=== PATIENT | female | born 1965 | race Caucasian/White ===

== ENCOUNTER 2024-10-10 10:43 | Inpatient (IN) ==
--- NOTE | 2024-09-12 11:15 | PAT Medication Instructions ---
Medication Instructions Date of Service September 12, 2024 Home Medications atorvastatin 10 mg tablet 10 mg PO QAM cholecalciferol (vitamin D3) 125 mcg (5,000 unit) tablet (Vitamin D3) 125 mcg PO BID levothyroxine 175 mcg tablet 87.5 mcg PO 2XWK levothyroxine 175 mcg tablet 175 mcg PO 5XWK lisinopril 5 mg tablet 5 mg PO QAM omeprazole 40 mg capsule,delayed release 40 mg PO QAM sertraline 25 mg tablet 25 mg PO QAM tirzepatide 7.5 mg/0.5 mL subcutaneous pen injector (Mounjaro) 7.5 mg subcut WK triamterene 37.5 mg-hydrochlorothiazide 25 mg tablet 1 tab PO QAM Continue as directed levothyroxine 175 mcg tablet 87.5 mcg PO 2XWK levothyroxine 175 mcg tablet 175 mcg PO 5XWK STOP 7 days prior to surgery tirzepatide 7.5 mg/0.5 mL subcutaneous pen injector (Mounjaro) 7.5 mg subcut WK DO NOT take the morning of surgery cholecalciferol (vitamin D3) 125 mcg (5,000 unit) tablet (Vitamin D3) 125 mcg PO BID lisinopril 5 mg tablet 5 mg PO QAM triamterene 37.5 mg-hydrochlorothiazide 25 mg tablet 1 tab PO QAM Take morning of surgery With a small sip of water, OTHERWISE NOTHING TO EAT OR DRINK AFTER MIDNIGHT: atorvastatin 10 mg tablet 10 mg PO QAM omeprazole 40 mg capsule,delayed release 40 mg PO QAM sertraline 25 mg tablet 25 mg PO QAM Take evening before surgery cholecalciferol (vitamin D3) 125 mcg (5,000 unit) tablet (Vitamin D3) 125 mcg PO BID Other Notes If you have any questions please call us at [phone] or [phone] or [phone] or [phone]
--- NOTE | 2024-09-18 10:01 | Anesthesiology Consultation ---
Date of Service September 18, 2024 Assessment & Plan (1) Encounter for pre-operative examination: - awaiting surgeon ordered medical clearance 09/26/24, Dr. Merrick Cardona. - check BSG am DOS. - tirzepatide instructions: Patient informed at PAT visit to stop 7 days prior to surgery-voiced understanding. Patient advised to check with prescriber to see if alternative management changes recommended while holding tirzepatide- if so, patient to call back to [facility] to update chart and discuss if any further preop medication instructions needed. Chart Review Chart Review: Pending: Refer to Additional Notes / Consult section and Patient seen in Pre Admission Testing Teaching & Discussion Pre-Anesthesia Teaching/Discussion Notes: Instructed NPO after midnight before surgery, except medications with 15 cc of water. Medication instructions provided according to the [facility] guidelines. History Surgery Operation Date: 10/10/24 07:45 Proposed Procedures p L4-L5 Decompression and Fusion Spinal Cord Monitoring - German Jenkins, Height/Weight Height: 5 ft 2 in Weight: 109.6 kg Allergies Allergy/AdvReac Type Severity Reaction Status Date / Time metformin AdvReac Severe severe Verified 09/10/24 15:06 abdominal pain, cramping, diarrhea tramadol AdvReac Mild Dizziness Verified 09/10/24 15:05 Medications Home Medications Medication Instructions Recorded Confirmed Last Taken atorvastatin 10 mg tablet 10 mg PO QAM 09/10/24 09/10/24 Unknown cholecalciferol (vitamin D3) 125 125 mcg PO BID 09/10/24 09/10/24 Unknown mcg (5,000 unit) tablet (Vitamin D3) levothyroxine 175 mcg tablet 87.5 mcg PO 2XWK 09/10/24 09/10/24 Unknown levothyroxine 175 mcg tablet 175 mcg PO 5XWK 09/10/24 09/10/24 Unknown lisinopril 5 mg tablet 5 mg PO QAM 09/10/24 09/10/24 Unknown omeprazole 40 mg capsule,delayed 40 mg PO QAM 09/10/24 09/10/24 Unknown release sertraline 25 mg tablet 25 mg PO QAM 09/10/24 09/10/24 Unknown tirzepatide 7.5 mg/0.5 mL 7.5 mg subcut WK 09/10/24 09/10/24 09/04/24 subcutaneous pen injector (Rita) triamterene 37.5 1 tab PO QAM 09/10/24 09/10/24 Unknown mg-hydrochlorothiazide 25 mg tablet Past Medical History Medical History (Updated 09/18/24 @ 10:22 by Viv Real PA-C) Anxiety Chronic back pain Degenerative disc disease GERD (gastroesophageal reflux disease) controlled, stable per pt Hyperlipidemia Hypertension controlled, stable per pt Hypothyroidism Osteoarthritis Pre-diabetes Sleep apnea bipap at night Spinal stenosis Patient denies h/o stroke, seizures, heart attack, heart failure, blood clots/DVTs or blood transfusions. Exercise / Class Metabolic Activity II 4-5 Yardwork/Stairs/Walk up hill (denies chest discomfort or shortness of breath with one flight of stairs) Past Family History Family History Other No family history of adverse response to anesthesia Past Surgical History Surgical History H/O thumb surgery right thumb ligament repair H/O total thyroidectomy d/t nodules H/O umbilical hernia repair History of section History of cholecystectomy History of colonoscopy History of esophagogastroduodenoscopy (EGD) History of mandibular surgery repair of TMJ on left S/P epidural steroid injection S/P foot surgery, left repair of a tendon S/P nasal septoplasty S/P panniculectomy S/P T&A (status post tonsillectomy and adenoidectomy) Past Anesthesia History No Hx of Anesthesia Complications and No Family Hx of Anesthesia Complications History of PONV No Hx of PONV and No Hx of Motion Sickness Social History Smoking Status: Never smoker Do You Dip or Chew Tobacco: No Hx Alcohol Use: Yes alcohol intake frequency: a few times a month Hx Substance Use: No substance use type: does not use Review of Systems Patient denies chest pain, shortness of breath, dyspnea on exertion, fever, chills, cough, wheezing, or palpitations. Physical Exam Vital Signs Vitals BP 121/75 P 85 TEMP 98.7 SP02 95% on RA RESP 18 Physical Patient resting comfortably in chair in no acute distress, alert and oriented, responding appropriately throughout visit Full cervical extension range of motion without pain TMD 3.5 finger breadths Mallampati Score 2 Dentition: implant right lower side and front upper bridge, denies chipped or loose teeth, caps/crowns Lungs: normal respiratory effort. Good air movement, clear throughout to auscultation, no adventitious breath sounds Cardiac: regular rate and rhythm, no murmurs noted Carotid arteries: negative bruit bilat Lab Results Anesthesia Preop Results Results Anesthesia Widget: WBC 6.87 K/ul (4.8-10.8) 09/18/24 Hgb 13.3 g/dl (12.0-16.0) 09/18/24 Hct 39.0 % (37.0-47.0) 09/18/24 Plt 248 K/uL (130-400) 09/18/24 Na 140 mmol/L (136-145) 09/18/24 K 3.6 mmol/L (3.5-5.1) 09/18/24 Cl 104 mmol/L (98-107) 09/18/24 CO2 31 mmol/L (21-32) 09/18/24 BUN 16 mg/dl (6-23) 09/18/24 Creat 0.60 mg/dl (0.6-1.2) 09/18/24 Glucose Level 117 mg/dl (70-99(Fasting)) H 09/18/24 PT 10.0 Seconds (9.0-12.0) 09/18/24 PTT 26 Seconds (21-31) 09/18/24 INR 0.9 (0.9-1.1) 09/18/24 HA1c 6.1 % (4.5-5.6) H 09/18/24 Urine Color Yellow 09/18/24 Urine Appearance Cloudy (Clear) A 09/18/24 Urine pH 5.5 (4.5-7.5) 09/18/24 Urine Specific [place] 1.020 (1.000-1.030) 09/18/24 Urine Protein Negative (Negative) 09/18/24 Urine Glucose (UA) Negative (Negative) 09/18/24 Urine Ketones Negative (Negative) 09/18/24 Urine Blood Negative (Negative) 09/18/24 Urine Nitrite Negative (Negative) 09/18/24 Urine Bilirubin Negative (Negative) 09/18/24 Urine Urobilinogen Negative (Negative) 09/18/24 Urine Leukocyte Esterase Trace (Negative) H 09/18/24 Urine WBC (Auto) 0-5 /hpf (0-5) 09/18/24 Urine RBC (Auto) 0-2 /hpf (0-2) 09/18/24 Urine Hyaline Casts (Auto) 0-2 /lpf (0-2) 09/18/24 Urine Epithelial Cells (Auto) >20 /hpf (0-2) H 09/18/24 Urine Bacteria (Auto) 1+ (None Seen) H 09/18/24 Blood Type A Positive 09/18/24 Antibody Screen NEGATIVE 09/18/24 Testing Laboratory Results Surgeon's office made aware of abnormal UA. Electrocardiogram Date: 09/18/24 NSR, rate 74 bpm Chest X-Ray Date: 09/18/24 No focal consolidation, infiltrates, or granuloma noted.
[~2024-10-10 10:43] MED LIST: DEXAMETHASONE SOD INJ 4 MG/ML VIAL ONE; KETAMINE HCL 10MG/ML SYR ONE; LIDOCAINE 2% 2 ML VIAL/AMP(20MG/ML) INFIL ONE; MIDAZOLAM HCL 1 MG/ML 2ML VIAL ONE; ONDANSETRON INJ 2 MG/ML 2 ML VIAL ONE; PROPOFOL IV EMULSION 10 MG/ML 20 ML VIAL IV ONE; ROCURONIUM BROMIDE 10 MG/ML 5 ML VIAL IV ONE; fentaNYL citrate PF 100 MCG/2 ML VIAL ONE
[2024-10-10] MEDS: LR 60ML/HR IV SCH (11:02)
[2024-10-10] MEDS: LR 15ML/HR IV SCH (11:02)
[2024-10-10] MEDS: ACETAMINOPHEN 500 MG TAB PO SCH (11:03)
[2024-10-10] MEDS: CeleBREX 200 MG CAP PO SCH (11:03)
[2024-10-10] MEDS: GABAPENTIN 600 MG DOSE PO SCH (11:03)
--- NOTE | 2024-10-10 12:18 | History & Physical Bridge Note ---
Date of Service October 10, 2024 History & Physical Bridge Note I have examined the patient, reviewed the History & Physical and in the interval since the performance of the History & Physical I have noted the following changes of clinical significance: no changes noted
--- NOTE | 2024-10-10 12:19 | History & Physical Report ---
Date of Service October 10, 2024 Assessment & Plan (1) Spondylolisthesis, lumbar region: Plan: L4-L5 decompression and fusion History of Present Illness Chief Complaint: Back and leg pain Primary Care Provider: Merrick Cardona MD This is a 59-year-old female who presents for chronic persistent back and leg pain after failing course of nonoperative care she is here for surgical invention. Allergies Allergy/AdvReac Type Severity Reaction Status Date / Time metformin AdvReac Severe severe Verified 10/10/24 10:35 abdominal pain, cramping, diarrhea tramadol AdvReac Mild Dizziness Verified 10/10/24 10:35 Home Medications Medication Instructions Recorded Confirmed Type atorvastatin 10 mg tablet 10 mg PO QAM 09/10/24 10/10/24 History cholecalciferol (vitamin D3) 125 125 mcg PO BID 09/10/24 10/10/24 History mcg (5,000 unit) tablet (Vitamin D3) levothyroxine 175 mcg tablet 87.5 mcg PO 2XWK 09/10/24 10/10/24 History levothyroxine 175 mcg tablet 175 mcg PO 5XWK 09/10/24 10/10/24 History lisinopril 5 mg tablet 5 mg PO QAM 09/10/24 10/10/24 History omeprazole 40 mg capsule,delayed 40 mg PO QAM 09/10/24 10/10/24 History release sertraline 25 mg tablet 25 mg PO QAM 09/10/24 10/10/24 History tirzepatide 7.5 mg/0.5 mL 7.5 mg subcut WK 09/10/24 10/10/24 History subcutaneous pen injector (Mounjaro) triamterene 37.5 1 tab PO QAM 09/10/24 10/10/24 History mg-hydrochlorothiazide 25 mg tablet empagliflozin 10 mg tablet 10 mg PO DAILY 09/26/24 10/10/24 History (Jardiance) Past Med/Surg History Problem List (Updated 10/10/24 @ 12:19 by German Jenkins DO) Spondylolisthesis, lumbar region Encounter for pre-operative examination Medical History (Updated 10/10/24 @ 12:19 by German Jenkins DO) Sleep apnea bipap at night Osteoarthritis Degenerative disc disease Spinal stenosis Chronic back pain Anxiety GERD (gastroesophageal reflux disease) controlled, stable per pt Hypothyroidism Hypertension controlled, stable per pt Hyperlipidemia Pre-diabetes Surgical History History of colonoscopy History of esophagogastroduodenoscopy (EGD) H/O thumb surgery right thumb ligament repair S/P foot surgery, left repair of a tendon S/P panniculectomy H/O umbilical hernia repair History of mandibular surgery repair of TMJ on left History of cholecystectomy H/O total thyroidectomy d/t nodules History of section S/P nasal septoplasty S/P T&A (status post tonsillectomy and adenoidectomy) S/P epidural steroid injection Family History Other No family history of adverse response to anesthesia Social History Smoking Status: Never smoker Second Hand Exposure: No; Do You Dip or Chew Tobacco: No; Tobacco Cessation Education Requested by Patient: No Hx Alcohol Use: Yes Hx Substance Use: No Preferred Language: Latvian Communication Ability: Effective Hardboard Grinder Required: No Beliefs That Will Affect Care: None Current Living Situation: Spouse Other Information That Helps Us Care for You: No Feels Safe at Home: Yes Safety Concerns: Feels Safe At This Time Assistive Devices: BiPap and Glasses Physical Exam Physical Exam: Patient is alert and oriented heart regular rhythm Lungs clear Results & Data Results & Data Vital Signs (Past 12 Hours) Vital Signs Temp Pulse Resp BP Pulse Ox O2 Del Method 10/10/24 10:53 Room Air, BiPAP 10/10/24 10:50 36.7 C 82 18 165/87 H 96 Room Air
[2024-10-10] MEDS: ceFAZolin 2000MG 2,000 MG/15 ML SYR IV SCH ×2 (12:49→20:27)
[2024-10-10] MEDS ORDERED: LARYING-O-JET KIT (LTA) ONE (13:07)
[2024-10-10] MEDS ORDERED: GLYCOPYRROLATE 0.2 MG/ML VIAL ONE (13:07)
[2024-10-10] MEDS ORDERED: fentaNYL citrate PF 100 MCG/2 ML VIAL ONE (13:11)
[2024-10-10] MEDS: BUPIVACAINE/EPINEPHRINE 0.25% 1:200,000 30 ML VIAL ONE (13:26)
[2024-10-10] MEDS ORDERED: SUGAMMADEX SODIUM 200 MG/2 ML VIAL IV ONE (13:31)
[2024-10-10] MEDS ORDERED: ePHEDrine sulfate 50 MG/ML AMP IV PRN (14:24)
[2024-10-10] MEDS: ceFAZolin 330 MG/ML 1 GM VIAL ONE (14:24)
[2024-10-10] MEDS ORDERED: MEPERIDINE HCL 25 MG/ML CARP/VIAL IV PRN (14:24)
[2024-10-10] MEDS ORDERED: ATROPINE SULFATE 0.1 MG/ML 10ML SYR IV PRN (14:24)
[2024-10-10] MEDS: FLOSEAL HEMOSTATIC MATRIX 10ML TOP ONE (14:24)
[2024-10-10] MEDS ORDERED: fentaNYL citrate PF 100 MCG/2 ML VIAL IV PRN (14:24)
[2024-10-10] MEDS ORDERED: DEXAMETHASONE SOD INJ 4 MG/ML VIAL IV PRN (14:24)
[2024-10-10] MEDS ORDERED: ONDANSETRON INJ 2 MG/ML 2 ML VIAL IV PRN ×2 (14:24→16:41)
[2024-10-10] MEDS ORDERED: HYDROmorphone INJ 2 MG/ML SYR/VIAL IV PRN (14:24)
--- NOTE | 2024-10-10 14:37 | Operative Report ---
Post Operative Report Pre & Post Diagnosis Operation Date: 10/10/24 12:05 Pre-Op Diagnosis: #1 lumbar spondylolisthesis with radiculopathy #2 lumbar spondylosis with radiculopathy #3 lumbar spinal stenosis #4 morbid obesity Post-Op Diagnosis: Same I identified the patient and participated in the time-out.: Yes Procedure Operation Date: 10/10/24 12:05 Actual Procedures #1 lumbar decompression with bilateral medial facetectomies and foraminotomies L3-L4 L4-L5. #2 posterior spinal fusion L4-5. #3 placement posterior instrumentation L4-5 using camber. #4 interbody fusion L4-L5. #5 this was Spira 13 x 26 mm x 2 at L4-5 #6 placement locally harvested morselized autograft in the posterior gutters. #7 placement infuse collagen sponge combined with Koros in the posterior lateral gutters and os design and interbody space. #8 application of versa wrap over the exposed dura. Surgeon German Jenkins, DO Er Physician Yuval Owens Estimated Blood Loss 400 Findings See Below The patient is 5 foot 2 weighing over 110 kg with a BMI in excess of 44. The patient's body habitus did contribute to significant technical difficulty with positioning exposure and the procedure itself. This had at least 50% increased operative time. I am recommending a modifier 22. Specimens None Indications This is a 59-year-old female who presents publish diagnosis with failing course of nonoperative care is here for surgical invention. Description of Procedure Patient was met with identified informed consent obtained. Patient was then taken to the operative suite underwent intubation placed in a prone position on the Noe table atop the [place] frame. All bony prominences well-padded eyes inspected to ensure no external pressure placed upon them. This point the lumbar spine was prepped and draped in normal sterile fashion. Sharp dissection with the assistance of Bovie cautery performed down to and exposing the lamina and transverse processes of L4-L5. From a caudal cephalad fashion complete laminectomy of L4 was performed including bilateral medial facetectomies and foraminotomies addressing severe neural compression. This is followed by partial laminectomy of L3 with bilateral medial facetectomies to address all subarticular stenosis. Pedicle screws were then placed in L4-L5 bilaterally with assistance of fluoroscopy and appropriate sized lolly placed. By way of transforaminal approach on the right a discectomy of L4-L5 was performed e ndplates corrected to subcortical edema bone and a 13 x 26 mm spiral cage filled with os design bone graft tapped in position. Then proceeded to the left transforaminal region at L4-5. Again discectomy performed. Endplates guided to subcortical main bone and a second 13 x 26 mm spiral cage filled with os design bone graft tapped in position. The rods then compressed locked in final position bilaterally. The transverse processes of L4-L5 burred to subcortical bleeding bone. Infuse collagen sponge, with Koros and local autograft placed in the posterior lateral gutters. 15 round ISMA drain inserted. Versa wrap placed over the exposed dura. The incision was then closed with 1 Vicryl and fascia 2- 0 Vicryl subcutaneously and 4 Monocryl for final skin closure. Steri-Strips sterile dressing placed. Patient awakened and taken to PACU in stable condition. Please note Yuval record was present at the entire procedure for the patient positioning complex portion of the surgery and final skin closure. I attest to the content of the Intraoperative Record and any orders documented therein. Any exceptions are noted below.
--- NOTE | 2024-10-10 14:46 | Fluoroscopy Report ---
FL lumbar spine 2-3V CLINICAL HISTORY: L4-L5 DECOMP/FUSION COMPARISON STUDY: None FLUOROSCOPY TIME: 12 seconds FLUOROSCOPY IMAGES: 3 EXPOSURE DOSE: 12 mGy FINDINGS: Fluoroscopy was provided for L4-5 metallic fusion. IMPRESSION: Intraoperative fluoroscopy. ACT 112: Negative or not required by law. Electronically signed by: Steve Lainez M.D. 10/10/2024 2:44 PM
--- NOTE | 2024-10-10 15:05 | Anesthesiology Progress Note ---
Date of Service October 10, 2024 Anesthesia Post Procedure Vital Signs Vital Signs: Temp Pulse Resp BP Pulse Ox O2 Del Method 10/10/24 10:53 Room Air, BiPAP 10/10/24 10:50 36.7 C 82 18 165/87 H 96 Room Air Pain Intensity Bilateral Leg: Pain Intensity: 8 Transfer of Care Handoff Completed per policy Notes Mental Status: alert / awake / arousable and participated in evaluation Patient Amnestic to Procedure: Yes Nausea / Vomiting: adequately controlled Pain: adequately controlled Airway Patency, RR, SpO2: stable & adequate BP & HR: stable & adequate Hydration State: stable & adequate Anesthetic Complications: no major complications apparent and Pt Satisfied with anesthetic care
[2024-10-10] MEDS ORDERED: LABETALOL HCL IV 5 MG/ML 20ML IV ONE (15:09)
[2024-10-10] MEDS ORDERED: HYDROmorphone INJ 1 MG/ML SYRINGE IV PRN (16:41)
[2024-10-10] MEDS ORDERED: LORazepam 0.5 MG TAB PO PRN (16:41)
[2024-10-10] MEDS ORDERED: SOD PHOSPHATE/SOD BIPHOSPHATE ENEMA 132 ML BTL PR PRN (16:41)
[2024-10-10] MEDS ORDERED: NALOXONE HCL 0.4 MG/1 ML VIAL/CARP IV PRN (16:41)
[2024-10-10] MEDS ORDERED: MAGNESIUM HYDROXIDE SUSP 30 ML UDC PO PRN (16:41)
[2024-10-10] MEDS ORDERED: DO NOT ADMINISTER FLU VACCINE PRN (16:41)
[2024-10-10] MEDS ORDERED: ONDANSETRON 4 MG OD TAB PO PRN (16:41)
[2024-10-10] MEDS ORDERED: hydrOXYzine HCl 25 MG TAB PO PRN (16:41)
[2024-10-10] MEDS ORDERED: DO NOT ADMINISTER PNEUMOCOCCAL VACCINE PRN (16:41)
[2024-10-10] MEDS ORDERED: LORazepam 2 MG/1 ML VIAL IV PRN (16:41)
[2024-10-10] MEDS ORDERED: oxyCODONE HCL IR 5 MG TAB (IMMEDIATE RELEASE) PO PRN (16:41)
[2024-10-10] MEDS ORDERED: diphenhydrAMINE Capsule 25 MG CAP PO PRN (16:41)
[2024-10-10] MEDS ORDERED: PROMETHAZINE 12.5 MG/50.5 ML BAG IV PRN (16:41)
[2024-10-10] MEDS ORDERED: NON-FORMULARY MEDICATION (Tirzepatide [Mounjaro] 7.5 mg/0.5 mL Pen Injector) SQ SCH (16:41)
[2024-10-10] MEDS ORDERED: HYDROmorphone INJ 0.5 MG/0.5 ML SYR IV PRN (16:41)
[2024-10-10] MEDS ORDERED: ALUMINUM/MAGNESIUM SUSP 30 ML UDC PO PRN (16:41)
[2024-10-10] MEDS ORDERED: PHARMACY GLYCEMIC MGMT CONSULT PRN (16:41)
[2024-10-10] MEDS ORDERED: bisacodyL 10 MG SUPP PR PRN (16:41)
[2024-10-10] MEDS ORDERED: ACETAMINOPHEN 1,000 MG/100 ML VIAL IV PRN (16:41)
[2024-10-10] MEDS ORDERED: GLUCOSE 40% GEL 15 GM TUBE PO PRN (17:15)
[2024-10-10] MEDS ORDERED: CARBOHYDRATES FOR HYPOGLYCEMIA PO PRN (17:15)
[2024-10-10] MEDS ORDERED: GLUCAGON FOR INJ 1 MG VIAL SQ PRN (17:15)
[2024-10-10] MEDS ORDERED: DEXTROSE 50% 50 ML SYRINGE IV PRN (17:15)
[2024-10-10] MEDS ORDERED: GLUCOSE 10 TAB/TUBE PO PRN (17:15)
--- NOTE | 2024-10-10 18:17 | Hospitalist Consultation ---
Date of Consultation October 10, 2024 Assessment & Plan (1) Spondylolisthesis, lumbar region: Status post L4-L5 decompression and fusion (2) Spinal stenosis: (3) Chronic back pain: (4) Anxiety: (5) GERD (gastroesophageal reflux disease): (6) Hypothyroidism: (7) Hypertension: (8) Hyperlipidemia: (9) Sleep apnea: Plan L4-L5 decompression and fusion on 10/10/2024 Management will be as per spine surgery Minimal pain following surgery without any radiation and her numbness has been improving DVT prophylaxis as per surgeon Remains medically stable and will check blood counts to see the stability Her other significant medical conditions as mentioned above remained stable Her chronic medications will be continued and She will have BiPAP for sleep apnea as usual Her CBC and PRP will be checked tomorrow DVT prophylaxis As per spine surgery, SCDs for now CODE STATUS Full History of Present Illness Reason for Consultation: Medical management following L4-L5 decompression and fusion Attending Physician: German Jenkins, DO History of Present Illness She is a 59-year-old female with significant past medical history of sleep apnea on BiPAP at night spinal stenosis, Anxiety/depression, GERD, hypothyroidism, hypertension, hyperlipidemia and prediabetes apparently underwent L4-L5 decompression and fusion for ongoing chronic back pain with radiculopathy. She has been feeling much better with minimal pain in the lower back and does not have any numbness or tingling involving the extremities. She denies any chest pain, shortness of breath or palpitation. Does not have any abdominal pain nausea or vomiting. Allergies Allergy/AdvReac Type Severity Reaction Status Date / Time metformin AdvReac Severe severe Verified 10/10/24 10:35 abdominal pain, cramping, diarrhea tramadol AdvReac Mild Dizziness Verified 10/10/24 10:35 Home Medications Medication Instructions Recorded Confirmed Type atorvastatin 10 mg tablet 10 mg PO QAM 09/10/24 10/10/24 History cholecalciferol (vitamin D3) 125 125 mcg PO BID 09/10/24 10/10/24 History mcg (5,000 unit) tablet (Vitamin D3) levothyroxine 175 mcg tablet 87.5 mcg PO 2XWK 09/10/24 10/10/24 History levothyroxine 175 mcg tablet 175 mcg PO [id number] 09/10/24 10/10/24 History lisinopril 5 mg tablet 5 mg PO QAM 09/10/24 10/10/24 History omeprazole 40 mg capsule,delayed 40 mg PO QAM 09/10/24 10/10/24 History release sertraline 25 mg tablet 25 mg PO QAM 09/10/24 10/10/24 History tirzepatide 7.5 mg/0.5 mL 7.5 mg subcut WK 09/10/24 10/10/24 History subcutaneous pen injector (Mounjaro) triamterene 37.5 1 tab PO QAM 09/10/24 10/10/24 History mg-hydrochlorothiazide 25 mg tablet empagliflozin 10 mg tablet 10 mg PO DAILY 09/26/24 10/10/24 History (Jardiance) Patient History Medical History (Updated 10/10/24 @ 12:19 by German Jenkins DO) Sleep apnea bipap at night Osteoarthritis Degenerative disc disease Spinal stenosis Chronic back pain Anxiety GERD (gastroesophageal reflux disease) controlled, stable per pt Hypothyroidism Hypertension controlled, stable per pt Hyperlipidemia Pre-diabetes Surgical History History of colonoscopy History of esophagogastroduodenoscopy (EGD) H/O thumb surgery right thumb ligament repair S/P foot surgery, left repair of a tendon S/P panniculectomy H/O umbilical hernia repair History of mandibular surgery repair of TMJ on left History of cholecystectomy H/O total thyroidectomy d/t nodules History of section S/P nasal septoplasty S/P T&A (status post tonsillectomy and adenoidectomy) S/P epidural steroid injection Family History Other No family history of adverse response to anesthesia Social History Smoking Status: Never smoker Second Hand Exposure: No; Do You Dip or Chew Tobacco: No; Tobacco Cessation Education Requested by Patient: No Hx Alcohol Use: Yes Hx Substance Use: No Preferred Language: Italian Communication Ability: Effective Homeopathic Doctor Required: No Beliefs That Will Affect Care: None Current Living Situation: Spouse Other Information That Helps Us Care for You: No Feels Safe at Home: Yes Safety Concerns: Feels Safe At This Time Assistive Devices: BiPap and Glasses Review of Systems Review of Systems: All systems reviewed and are unremarkable except as noted below Physical Exam Physical Exam: Lying in bed without any apparent distress Constitutional: well developed, well nourished, + ill appearing and + obese Eyes: PERRL, conjunctivae normal, anicteric sclerae ENMT: external ear and nose normal, oropharynx normal Neck: trachea midline, no thyromegaly Respiratory: no respiratory distress Auscultation: lungs clear to auscultation bilaterally Cardiovascular: Rate/Rhythm: regular rate and regular rhythm; not tachycardic Heart Sounds: normal S1 and normal S2; no murmur Extremities: + edema ( trace edema bilaterally) Gastrointestinal (Abdomen): Inspection/Auscultation: + abdomen distended and normal bowel sounds Percussion/Palpation: abdomen soft; abdomen nontender Musculoskeletal: No acute arthritis involving any of the joint Neurologic: Alert, awake and oriented x 3. No focal sensory no motor deficit appreciated Lymphatic: no cervical or axillary lymphadenopathy Results & Data Results & Data Vital Signs (Past 12 Hours) Vital Signs Temp Pulse Pulse Resp BP BP Pulse Ox 10/10/24 17:30 77 16 138/80 96 10/10/24 16:15 74 12 132/70 95 10/10/24 16:00 63 14 122/76 95 10/10/24 15:50 65 18 153/96 H 96 10/10/24 15:45 63 14 141/81 H 96 10/10/24 15:30 36.4 C L 76 14 131/84 96 10/10/24 15:20 77 12 145/84 H 99 10/10/24 15:10 83 14 144/94 H 100 10/10/24 15:04 36 C L 86 14 168/89 H 99 10/10/24 10:53 10/10/24 10:50 36.7 C 82 18 165/87 H 96 O2 Del Method O2 Flow Rate 10/10/24 17:30 Room Air 10/10/24 16:15 Nasal Cannula 2 10/10/24 16:00 Nasal Cannula 2 10/10/24 15:50 Nasal Cannula 2 10/10/24 15:45 Nasal Cannula 2 10/10/24 15:30 Nasal Cannula 2 10/10/24 15:20 Oxymask 4 10/10/24 15:10 Oxymask 8 10/10/24 15:04 Oxymask 8 10/10/24 10:53 Room Air, BiPAP 10/10/24 10:50 Room Air Medications Administered Current Inpatient Medications Acetaminophen (Acetaminophen 500 Mg Tab) 1,000 mg PO Q8H PRN PRN Reason: MILD Pain Scale 1,2,3 & Pre PT Stop: 11/09/24 16:40 Al Hydrox/Mg Hydrox/Simethicone (Aluminum/Magnesium Susp 30 Ml Udc) 30 ml PO Q6H PRN PRN Reason: Dyspepsia Stop: 11/09/24 16:40 Atorvastatin Calcium (Atorvastatin 10 Mg Tab) 10 mg PO QAM ISMEAL Stop: 11/10/24 08:59 Atropine Sulfate (Atropine Sulfate 0.1 Mg/Ml 10ml Syr) 0.5 mg IV Q1M PRN PRN Reason: PACU Use-HR<40 &/or Bradycardi Stop: 10/10/24 22:24 Bisacodyl (Bisacodyl 10 Mg Supp) 10 mg AR DAILY PRN PRN Reason: Constipation Stop: 11/09/24 16:40 Dexamethasone (Dexamethasone Sod Inj 4 Mg/Ml Vial) 4 mg IV ONCE PRN PRN Reason: PACU Use Only-Nausea/Vomiting Stop: 10/10/24 22:25 Dextrose (Dextrose 50% 50 Ml Syringe) 25 - 50 ml IV UD PRN; Protocol PRN Reason: Hypoglycemia Protocol Stop: 11/09/24 17:14 Diphenhydramine HCl (Diphenhydramine Capsule 25 Mg Cap) 25 mg PO Q6H PRN PRN Reason: Allergic Rhinitis/Insomnia Stop: 11/09/24 16:40 Ephedrine Sulfate (Ephedrine Sulfate 50 Mg/Ml Amp) 5 mg IV Q5M PRN PRN Reason: PACU Use Only-SBP<90 mmHg Stop: 10/10/24 22:24 Famotidine (Famotidine 20 Mg Tab) 20 mg PO Q12H PRN PRN Reason: Dyspepsia Stop: 11/09/24 16:40 Fentanyl Citrate (Fentanyl Citrate Pf 100 Mcg/2 Ml Vial) 50 mcg IV Q5M PRN PRN Reason: PACU Use Only-Pain Stop: 10/10/24 22:24 Glucagon (Glucagon For Inj 1 Mg Vial) 1 mg SQ UD PRN; Protocol PRN Reason: Hypoglycemia Protocol Stop: 11/09/24 17:14 Glucose (Glucose 40% Gel 15 Gm Tube) 15 - 30 gm PO UD PRN; Protocol PRN Reason: Hypoglycemia Protocol Stop: 11/09/24 17:14 Glucose (Glucose 10 Tab/Tube) 4 - 8 tab PO UD PRN; Protocol PRN Reason: Hypoglycemia Protocol Stop: 11/09/24 17:14 Hydromorphone HCl (Hydromorphone Inj 2 Mg/Ml Syr/Vial) 1 mg IV Q5M PRN PRN Reason: PACU Use Only-Pain Stop: 10/10/24 22:24 Hydromorphone HCl (Hydromorphone Inj 0.5 Mg/0.5 Ml Syr) 0.5 mg IV Q3H PRN PRN Reason: MODERATE Pain (Scale 4,5,6) & Pre PT Stop: 10/24/24 16:40 Hydromorphone HCl (Hydromorphone Inj 1 Mg/Ml Syringe) 1 mg IV Q3H PRN PRN Reason: SEVERE Pain (Scale 7,8,9,10) Stop: 10/24/24 16:40 Hydroxyzine HCl (Hydroxyzine Hcl 25 Mg Tab) 25 mg PO Q8H PRN PRN Reason: Anxiety Stop: 11/09/24 16:40 Lactated Ringer's (Lr) 1,000 mls @ 15 mls/hr IV .Q24H ISMAEL Stop: 10/11/24 05:59 Last Infusion: 10/10/24 12:47 Dose: Infused Lactated Ringer's (Lr) 1,000 mls @ 60 mls/hr IV .[id number] ISMAEL Stop: 10/10/24 22:39 Last Admin: 10/10/24 11:02 Dose: Not Given Acetaminophen (Ofirmev) 1,000 mg in 100 mls @ 400 mls/hr IV Q8H PRN PRN Reason: Pain Rating 1-3 & Pre PT Stop: 10/11/24 16:42 Cefazolin Sodium (Ancef 2000mg) 2,000 mg in 15 mls @ 3.75 mls/min IV Q8H ISMAEL; Protocol Stop: 10/11/24 05:03 Promethazine HCl (Phenergan) 12.5 mg in 50.5 mls @ 202 mls/hr IV Q6H PRN PRN Reason: Nausea And Vomiting Stop: 11/09/24 16:40 Dexamethasone 6 mg/ Syringe 1.5 mls @ 1 mls/min IV DAILY ISMAEL Stop: 10/13/24 09:02 Influenza Virus Vaccine Quadrival (Do Not Administer Flu Vaccine) 1 each N/A PRN PRN PRN Reason: Notification Stop: 11/09/24 16:40 Insulin Aspart (Insulin Aspart Per Unit Charge) 0 units SC ACHS COUNTS INCLUDE 234 BEDS AT THE [facility] Stop: 11/09/24 20:59 Levothyroxine Sodium (Levothyroxine Sodium 175 Mcg Tablet) 87.5 mcg PO SuSa@0630 COUNTS INCLUDE 234 BEDS AT THE [facility] Stop: 11/10/24 06:29 Levothyroxine Sodium (Levothyroxine Sodium 175 Mcg Tablet) 175 mcg PO MoTuWeThFr@0630 COUNTS INCLUDE 234 BEDS AT THE [facility] Stop: 11/12/24 06:29 Lisinopril (Lisinopril 5 Mg Tab) 5 mg PO QAM COUNTS INCLUDE 234 BEDS AT THE [facility] Stop: 11/10/24 08:59 Lorazepam (Lorazepam 0.5 Mg Tab) 0.5 mg PO Q8H PRN PRN Reason: Sedation/Anxiety Stop: 11/09/24 16:40 Lorazepam (Lorazepam 2 Mg/1 Ml Vial) 0.5 mg IV Q8H PRN PRN Reason: Sedation/Anxiety Stop: 11/09/24 16:40 Magnesium Hydroxide (Magnesium Hydroxide Susp 30 Ml Udc) 30 ml PO Q24H PRN PRN Reason: Constipation Stop: 11/09/24 16:40 Meperidine HCl (Meperidine Hcl 25 Mg/Ml Carp/Vial) 12.5 mg IV Q5M PRN PRN Reason: Surgi Pain/Chills/Rigors Stop: 10/10/24 22:25 Metoclopramide HCl (Metoclopramide Hcl Inj 5 Mg/Ml 2 Ml Vial) 10 mg IV Q6H PRN PRN Reason: Nausea &/or Vomiting Stop: 11/09/24 16:40 Miscellaneous (Carbohydrates For Hypoglycemia ) 15 - 30 gm PO UD PRN PRN Reason: Hypoglycemia Treatment Stop: 11/09/24 17:14 Miscellaneous Information (Pharmacy Glycemic Mgmt Consult) 1 each N/A UD PRN PRN Reason: Consult Stop: 11/09/24 16:40 Naloxone HCl (Naloxone Hcl 0.4 Mg/1 Ml Vial/Carp) 0.1 mg IV Q5M PRN PRN Reason: Oversedation/Resp depression Stop: 11/09/24 16:40 Ondansetron HCl (Ondansetron Inj 2 Mg/Ml 2 Ml Vial) 4 mg IV ONCE PRN PRN Reason: PACU Use Only-Nausea/Vomiting Stop: 10/10/24 22:25 Ondansetron HCl (Ondansetron Inj 2 Mg/Ml 2 Ml Vial) 4 mg IV Q6H PRN PRN Reason: Nausea &/or Vomiting Stop: 11/09/24 16:40 Ondansetron HCl (Ondansetron 4 Mg Od Tab) 4 mg PO Q6H PRN PRN Reason: Nausea Stop: 11/09/24 16:40 Oxycodone HCl (Oxycodone Hcl Ir 5 Mg Tab (Immediate Release)) 5 - 10 mg PO Q4H PRN PRN Reason: Pain & Pre PT Stop: 10/24/24 16:40 Pantoprazole Sodium (Pantoprazole 40 Mg Tab) 40 mg PO QAM COUNTS INCLUDE 234 BEDS AT THE [facility] Stop: 11/10/24 08:59 Pneumococcal Polyvalent Vaccine (Do Not Administer Pneumococcal Vaccine) 1 each N/A PRN PRN PRN Reason: Notification Stop: 11/09/24 16:40 Polyethylene Glycol (Polyethylene (Miralax) 17 Gm Pack) 17 gm PO Q6 ISMAEL Stop: 11/10/24 05:59 Senna/Docusate Sodium (Docusate Sodium/Senna 50/8.6mg Tab) 2 tab PO HS COUNTS INCLUDE 234 BEDS AT THE [facility] Stop: 11/09/24 20:59 Sertraline HCl (Sertraline Hcl 50 Mg Tablet) 25 mg PO QAM COUNTS INCLUDE 234 BEDS AT THE [facility] Stop: 11/10/24 08:59 Sodium Biphosphate/Sodium Phosphate (Sod Phosphate/Sod Biphosphate Enema 132 Ml Btl) 132 ml AR ONE PRN PRN Reason: Constipation Stop: 11/09/24 16:40 Triamterene/Hydrochlorothiazide (Triamterene/Hctz 37.5/25mg Tab) 1 tab PO QAM COUNTS INCLUDE 234 BEDS AT THE [facility] Stop: 11/10/24 08:59 Vitamin D (Cholecalciferol 125 Mcg (5,000 Units) Tab) 125 mcg PO BID COUNTS INCLUDE 234 BEDS AT THE [facility] Stop: 11/09/24 20:59
[2024-10-10] MEDS: DOCUSATE SODIUM/SENNA 50/8.6MG TAB PO SCH (20:26)
[2024-10-10] MEDS: ACETAMINOPHEN 500 MG TAB PO PRN (20:26)
[2024-10-10] MEDS: CHOLECALCIFEROL 125 MCG (5,000 UNITS) TAB PO SCH (20:28)
[2024-10-10] MEDS: INSULIN ASPART PER UNIT CHARGE SC SCH (20:49)
[2024-10-10] MEDS: LANTUS PER UNIT CHARGE SC SCH (22:19)
[2024-10-11] MEDS: INSULIN ASPART PER UNIT CHARGE SC SCH (02:42)
[2024-10-11] MEDS: POLYETHYLENE (MIRALAX) 17 GM PACK PO SCH (06:35)
[2024-10-11 06:58] LABS: Basophils # (auto) 0.02 K/uL (0.00-0.20); Basophils % (auto) 0.1 %; Hematocrit (blood only) 33.9 % (37.0-47.0); Hemoglobin 11.5 g/dl (12.0-16.0); Immature Granulocytes # (auto) 0.07 K/uL (0.01-0.20); Immature Granulocytes % (auto) 0.5 %; Lymphocytes # (auto) 1.13 K/uL (1.20-3.40); Mean Corpuscular Hgb Conc 33.9 g/dL (32.0-36.0); Mean Corpuscular Volume 82.5 fL (80.0-100.0); Mean Platelet Volume 10.8 fL (9.4-12.4); Monocytes # (auto) 0.93 K/uL (0.11-0.59); Monocytes % (auto) 6.6 %; Neutrophils # (auto) 11.95 K/uL (1.40-6.50); Neutrophils % (auto) 84.8 %; Platelet Count 243 K/uL (130-400); RDW Standard Deviation 41.8 fL (36.4-46.3); Red Blood Count 4.11 M/uL (4.20-5.40)
[2024-10-11 07:26] LABS: BUN Creatinine Ratio 20.3 (10-20); Calcium 8.1 mg/dl (8.6-10.3); Creatinine Clr Calc Pharmacy 120.3 ml/min; Potassium 3.9 mmol/L (3.5-5.1)
[2024-10-11] MEDS: LEVOTHYROXINE SODIUM 175 MCG TABLET PO SCH (07:46)
[2024-10-11] MEDS ORDERED: EMPAGLIFLOZIN 10 MG TAB PO SCH (09:00)
[2024-10-11] MEDS: TRIAMTERENE/HCTZ 37.5/25MG TAB PO SCH (09:54)
[2024-10-11] MEDS: SERTRALINE HCL 50 MG TABLET PO SCH (09:54)
[2024-10-11] MEDS: ATORVASTATIN 10 MG TAB PO SCH (09:55)
[2024-10-11] MEDS: PANTOprazole 40 MG TAB PO SCH (09:55)
[2024-10-11] MEDS: dexAMETHasone 6 MG in SYRINGE 0 ML IV SCH (09:55)
[2024-10-11] MEDS: lisinopril 5 MG TAB PO SCH (09:55)
[2024-10-11] MEDS: LANTUS PER UNIT CHARGE SC SCH (09:56)
--- NOTE | 2024-10-11 10:08 | Orthopedic Progress Note ---
Date of Service October 11, 2024 Assessment & Plan (1) Spondylolisthesis, lumbar region: Plan: At this time initiate physical therapy monitor her ISMA output hopefully discharge home in the next few days. Admission and Anticipated Discharge Date Admission Date: October 10, 2024 Subjective Back pain controlled leg pain markedly improved Physical Exam Physical Exam: Patient is in the chair at the bedside. She is comfortable. Distracted testing. Results & Data Vital Signs (Past 12 Hours) Vital Signs Temp Pulse Pulse Resp BP BP Pulse Ox 10/11/24 07:39 36.7 C 73 16 146/69 H 95 10/11/24 03:00 36.6 C 78 18 144/74 H 94 10/10/24 23:00 36.9 C 79 18 117/66 95 O2 Del Method 10/11/24 07:39 Room Air 10/11/24 03:00 Room Air 10/10/24 23:00 Room Air Queries Orthopedic Spine Obesity: Yes
--- NOTE | 2024-10-11 11:12 | Pharmacy Report ---
Pharmacy Glycemic Short Note 2 - Date of Service October 11, 2024 - Glycemic Short BSG Results (Last 24 hours): 10/10/24 10/10/24 10/10/24 11:11 15:07 20:41 Glucose POC Glucose 128 H 171 H 285 H 10/11/24 10/11/24 02:25 05:51 Glucose 183 H POC Glucose 242 H OUTPATIENT ANTIDIABETIC REGIMEN: * Tirzepatide 7.5mg SQ Weekly * Jardiance 10mg PO daily * 6.1% 09/18/24 ASSESSMENT: * 59 yo F POD1 spinal surgery on IV steroids pre-op and 3 days postop. * Basal bolus insulin to cover steroid effects on blood sugar, note patient had 15 units of Lantus last night and 9 units of NovoLog, but then did refuse AM Lantus and NovoLog, will discuss with patient needs for insulin while inpatient on IV steroids. PLAN FOR INPATIENT GLYCEMIC CONTROL: * Hold outpatient diabetes medications * Basal insulin * Lantus 30 units SQ daily with IV Dexamethasone * Bolus insulin * NovoLog per scale ACHS or Q6hrs while NPO * Goal Range: Low 110 mg/dL - High 140 mg/dL * Correction Factor: 20 mg/dL/unit * Nutritional / Prandial insulin per carb ratio of 1 unit per 6 grams CHO consumed
--- NOTE | 2024-10-11 18:17 | Hospitalist Progress Note ---
Date of Service October 11, 2024 Assessment & Plan (1) Spondylolisthesis, lumbar region: Plan: Status post L4-L5 decompression and fusion (2) Spinal stenosis: (3) Chronic back pain: (4) Anxiety: (5) GERD (gastroesophageal reflux disease): (6) Hypothyroidism: (7) Hypertension: (8) Hyperlipidemia: (9) Sleep apnea: Plan -L4-L5 decompression and fusion on 10/10/2024 -Management will be as per spine surgery -Minimal pain following surgery without any radiation and her numbness has been improving -DVT prophylaxis as per surgeon -Remains medically stable and will check blood counts to see the stability -Her other significant medical conditions as mentioned above remained stable -Her chronic medications will be continued and -She will have BiPAP for sleep apnea as usual I spent a total of 40 minutes in direct patient care, including [id number] time with the patient and/or family, reviewing medical records, ordering and reviewing diagnostic tests, and coordinating care with other healthcare providers. This time includes: history taking, physical examination, medical decision making, counseling, ECG interpretation, imaging interpretation, lab interpretation, orders, and education, excluding time spent in the performance of separately billed services. Admission and Anticipated Discharge Date Admission Date: October 10, 2024 Subjective Patient seen and examined at bedside. Patient doing well postop much more comfortable than she was before the surgery. Review of Systems Review of Systems: CONSTITUTIONAL: Patient denies fevers, chills, sweats and weight changes. EYES: Patient denies any visual symptoms. EARS, NOSE, AND THROAT: No difficulties with hearing. No symptoms of rhinitis or sore throat. CARDIOVASCULAR: Patient denies chest pains, palpitations, orthopnea and paroxysmal nocturnal dyspnea. RESPIRATORY: No dyspnea on exertion, no wheezing or cough. GI: No nausea, vomiting, diarrhea, constipation, abdominal pain, hematochezia or melena. : No urinary hesitancy or dribbling. No nocturia or urinary frequency. No abnormal urethral discharge. MUSCULOSKELETAL: No myalgias or arthralgias. NEUROLOGIC: No chronic headaches, no seizures. Patient denies numbness, tingling or weakness. PSYCHIATRIC: Patient denies problems with mood disturbance. No problems with anxiety. ENDOCRINE: No excessive urination or excessive thirst. DERMATOLOGIC: Patient denies any rashes or skin changes. Physical Exam Physical Exam: Gen: A&O NAD HEENT: NCAT, EOMI, not icteric. External ears normal. No rhinorrhea. Moist mucous membranes. Neck: Supple, full range of motion, no observable masses, No meningeal sign. Lungs: No Respiratory distress. CV: RRR, no edema. Abdomen: Soft, nondistended, No rebound tenderness. MSK: No joint swelling, no redness. Noted wound site and ISMA drain Skin: No rashes, petechiae, lesions. Normal color per patient. Neuro: Normal Gait, Grossly intact. Psych: Appropriate for situation. Results & Data Results & Data Vital Signs (Past 12 Hours) Vital Signs Temp Pulse Resp BP Pulse Ox O2 Del Method 10/11/24 15:53 36.9 C 85 16 117/67 93 Room Air 10/11/24 07:39 36.7 C 73 16 146/69 H 95 Room Air Laboratory Results -personally reviewed, mild reactive leukocytosis, stable Hgb and creatinine Medications Administered Acetaminophen (Acetaminophen 500 Mg Tab) 1,000 mg PO Q8H PRN PRN Reason: MILD Pain Scale 1,2,3 & Pre PT Stop: 11/09/24 16:40 Last Admin: 10/11/24 17:26 Dose: 1,000 mg Documented By: Admin: 10/11/24 07:46 Dose: 1,000 mg Documented By: Admin: 10/10/24 20:26 Dose: 1,000 mg Documented By: STEPHEN Atorvastatin Calcium (Atorvastatin 10 Mg Tab) 10 mg PO QAM ISMAEL Stop: 11/10/24 08:59 Last Admin: 10/11/24 09:55 Dose: 10 mg Documented By: JACK Dexamethasone 6 mg/ Syringe 1.5 mls @ 1 mls/min IV DAILY ISMAEL Stop: 10/13/24 09:02 Last Admin: 10/11/24 09:55 Dose: 1 mls/min Documented By: MACHELLE Insulin Aspart (Insulin Aspart Per Unit Charge) 0 units SC ACHS ISMAEL Stop: 11/09/24 20:59 Last Admin: 10/11/24 17:27 Dose: 26 units Documented By: JACK Co-signed By: MARK Admin: 10/11/24 13:32 Dose: 3 units Documented By: MACHELLE Co-signed By: EW Admin: 10/11/24 09:47 Dose: Not Given Documented By: Admin: 04/25/25 20:49 Dose: 5 units Documented By: STEPHEN Co-signed By: SACHI Insulin Glargine (Lantus Per Unit Charge) 30 units SC DAILY [facility] Stop: 10/13/24 09:01 Last Admin: 10/11/24 09:56 Dose: Not Given Documented By: TBK Levothyroxine Sodium (Levothyroxine Sodium 175 Mcg Tablet) 87.5 mcg PO SuSa@0630 [facility] Stop: 11/10/24 06:29 Last Admin: 10/11/24 07:46 Dose: 87.5 mcg Documented By: TBK Lisinopril (Lisinopril 5 Mg Tab) [facility] [place] Stop: 11/10/24 08:59 Last Admin: 10/11/24 09:55 Dose: 5 mg Documented By: TBK Pantoprazole Sodium (Pantoprazole 40 Mg Tab) 40 mg PO [facility] Stop: 11/10/24 08:59 Last Admin: 10/11/24 09:55 Dose: 40 mg Documented By: TBK Polyethylene Glycol (Polyethylene (Miralax) 17 Gm Pack) 17 gm PO Q6 [facility] Stop: 11/10/24 05:59 Last Admin: 10/11/24 17:26 Dose: 17 gm Documented By: Admin: 10/11/24 13:37 Dose: 17 gm Documented By: Admin: 10/11/24 06:35 Dose: 17 gm Documented By: STEPHEN Senna/Docusate Sodium (Docusate Sodium/Senna 50/8.6mg Tab) 2 tab PO HS [facility] Stop: 11/09/24 20:59 Last Admin: 10/10/24 20:26 Dose: 2 tab Documented By: PNChandler Sertraline HCl (Sertraline Hcl 50 Mg Tablet) 25 mg [facility] [place] Stop: 11/10/24 08:59 Last Admin: 10/11/24 09:54 Dose: 25 mg Documented By: TBK Triamterene/Hydrochlorothiazide (Triamterene/Hctz 37.5/25mg Tab) 1 tab [facility] [place] Stop: 11/10/24 08:59 Last Admin: 10/11/24 09:54 Dose: 1 tab Documented By: TBK Vitamin D (Cholecalciferol 125 Mcg (5,000 Units) Tab) 125 mcg PO BID ISMAEL Stop: 11/09/24 20:59 Last Admin: 10/11/24 09:55 Dose: 125 mcg Documented By: Admin: 10/10/24 20:28 Dose: 125 mcg Documented By: STEPHEN
[2024-10-12] MEDS: INSULIN ASPART PER UNIT CHARGE SC ONE (02:26)
[2024-10-12 03:47] VITALS: RESP 16
[2024-10-12 06:25] LABS: Hematocrit (blood only) 32.8 % (37.0-47.0); Hemoglobin 10.9 g/dl (12.0-16.0); Mean Corpuscular Hemoglobin 28.1 pg (25.0-34.0); Mean Corpuscular Hgb Conc 33.2 g/dL (32.0-36.0); Mean Corpuscular Volume 84.5 fL (80.0-100.0); Mean Platelet Volume 10.7 fL (9.4-12.4); Platelet Count 220 K/uL (130-400); RDW Coefficient of Variation 14.2 % (11.5-14.5); RDW Standard Deviation 43.5 fL (36.4-46.3); Red Blood Count 3.88 M/uL (4.20-5.40); White Blood Count 11.75 K/ul (4.8-10.8)
[2024-10-12 06:52] LABS: BUN Creatinine Ratio 27.3 (10-20); Potassium 4.1 mmol/L (3.5-5.1)
[2024-10-12] MEDS: FAMOTIDINE 20 MG TAB PO PRN (08:19)
--- NOTE | 2024-10-12 08:44 | Orthopedic Progress Note ---
Date of Service October 12, 2024 Assessment & Plan (1) Spondylolisthesis, lumbar region: Plan: Barb is postoperative day 2 status post L4-5 decompression and fusion. We are going to keep her for 1 more day due to her high ISMA drain output. She lives well over an hour away. Will continue with ambulation today. Continue with pain control. And anticipate discharge home tomorrow. Admission and Anticipated Discharge Date Admission Date: October 10, 2024 Subjective Barb is postoperative day 2 status post L4-5 decompression and fusion. Preoperative symptoms have greatly improved. Legs feel great. She is Ambulating about 200 feet in physical therapy. H&H are 10.9 and 32.8 respectively. ISMA drain output last shift was 80 cc. She has had a bowel movement. Review of Systems Review of Systems: All systems reviewed & are unremarkable except as noted in HPI & below Physical Exam Physical Exam: Alert and oriented x 3 Sitting in a chair no acute distress Dressing is clean dry intact with functioning ISMA drain Strength intact bilateral lower extremities Results & Data Vital Signs (Past 12 Hours) Vital Signs Temp Pulse Pulse Resp BP BP Pulse Ox 10/12/24 07:19 36.6 C 72 16 134/73 94 10/12/24 03:00 36.6 C 63 16 120/79 96 10/11/24 23:18 10/11/24 23:00 36.4 C L 71 20 129/79 98 O2 Del Method 10/12/24 07:19 Room Air 10/12/24 03:00 CPAP 10/11/24 23:18 CPAP 10/11/24 23:00 CPAP Queries Orthopedic Spine Obesity: Yes
--- NOTE | 2024-10-12 17:18 | Hospitalist Progress Note ---
Date of Service October 12, 2024 Assessment & Plan (1) Spondylolisthesis, lumbar region: Plan: Status post L4-L5 decompression and fusion (2) Spinal stenosis: (3) Chronic back pain: (4) Anxiety: (5) GERD (gastroesophageal reflux disease): (6) Hypothyroidism: (7) Hypertension: (8) Hyperlipidemia: (9) Sleep apnea: Plan -L4-L5 decompression and fusion on 10/10/2024 -Management will be as per spine surgery -Minimal pain following surgery without any radiation and her numbness has been improving -DVT prophylaxis as per surgeon -medically stable for discharge when ready per ortho -Her other significant medical conditions as mentioned above remained stable -Her chronic medications will be continued and -She will have BiPAP for sleep apnea as usual I spent a total of 35 minutes in direct patient care, including [id number] time with the patient and/or family, reviewing medical records, ordering and reviewing diagnostic tests, and coordinating care with other healthcare providers. This time includes: history taking, physical examination, medical decision making, counseling, ECG interpretation, imaging interpretation, lab interpretation, orders, and education, excluding time spent in the performance of separately billed services. Admission and Anticipated Discharge Date Admission Date: October 10, 2024 Subjective Patient seen and examined at bedside. Patient doing ok today. States she is staying another day due to drain darinage. Pain well controlled. Review of Systems Review of Systems: CONSTITUTIONAL: Patient denies fevers, chills, sweats and weight changes. EYES: Patient denies any visual symptoms. EARS, NOSE, AND THROAT: No difficulties with hearing. No symptoms of rhinitis or sore throat. CARDIOVASCULAR: Patient denies chest pains, palpitations, orthopnea and paroxysmal nocturnal dyspnea. RESPIRATORY: No dyspnea on exertion, no wheezing or cough. GI: No nausea, vomiting, diarrhea, constipation, abdominal pain, hematochezia or melena. : No urinary hesitancy or dribbling. No nocturia or urinary frequency. No abnormal urethral discharge. MUSCULOSKELETAL: No myalgias or arthralgias. NEUROLOGIC: No chronic headaches, no seizures. Patient denies numbness, tingling or weakness. PSYCHIATRIC: Patient denies problems with mood disturbance. No problems with anxiety. ENDOCRINE: No excessive urination or excessive thirst. DERMATOLOGIC: Patient denies any rashes or skin changes. Physical Exam Physical Exam: Gen: A&O 3 NAD HEENT: NCAT, EOMI, not icteric. External ears normal. No rhinorrhea. Moist mucous membranes. Neck: Supple, full range of motion, no observable masses, No meningeal sign. Lungs: No Respiratory distress. CV: RRR, no edema. Abdomen: Soft, nondistended, No rebound tenderness. MSK: No joint swelling, no redness. Noted wound site and ISMA drain Skin: No rashes, petechiae, lesions. Normal color per patient. Neuro: Normal Gait, Grossly intact. Psych: Appropriate for situation. Results & Data Results & Data Vital Signs (Past 12 Hours) Vital Signs Temp Pulse Resp BP Pulse Ox O2 Del Method 10/12/24 15:11 36.8 C 63 16 123/74 95 Room Air 10/12/24 08:00 Room Air 10/12/24 07:19 36.6 C 72 16 134/73 94 Room Air Laboratory Results -personally reviewed, downtrended leukocytosis, stable Hgb, creatinine stable Medications Administered Acetaminophen (Acetaminophen 500 Mg Tab) 1,000 mg PO Q8H PRN PRN Reason: MILD Pain Scale 1,2,3 & Pre PT Stop: 11/09/24 16:40 Last Admin: 10/12/24 12:06 Dose: 1,000 mg Documented By: Admin: 10/12/24 02:29 Dose: 1,000 mg Documented By: Admin: 10/11/24 17:26 Dose: 1,000 mg Documented By: Admin: 10/11/24 07:46 Dose: 1,000 mg Documented By: Admin: 10/10/24 20:26 Dose: 1,000 mg Documented By: STEPHEN Atorvastatin Calcium (Atorvastatin 10 Mg Tab) 10 mg PO QAM ISMAEL Stop: 11/10/24 08:59 Last Admin: 10/12/24 08:19 Dose: 10 mg Documented By: Admin: 10/11/24 09:55 Dose: 10 mg Documented By: MACHELLE Famotidine (Famotidine 20 Mg Tab) 20 mg PO Q12H PRN PRN Reason: Dyspepsia Stop: 11/09/24 16:40 Last Admin: 10/12/24 08:19 Dose: 20 mg Documented By: MIREYA Dexamethasone 6 mg/ Syringe 1.5 mls @ 1 mls/min IV DAILY ISMAEL Stop: 10/13/24 09:02 Last Admin: 10/12/24 08:21 Dose: 1 mls/min Documented By: Admin: 10/11/24 09:55 Dose: 1 mls/min Documented By: MACHELLE Insulin Aspart (Insulin Aspart Per Unit Charge) 0 units SC ACHS ISMAEL Stop: 11/09/24 20:59 Last Admin: 10/12/24 17:10 Dose: 16 units Documented By: MIREYA Co-signed By: JOSIE Admin: 10/12/24 12:01 Dose: 8 units Documented By: EW Co-signed By: KENISHA Admin: 10/12/24 08:21 Dose: 10 units Documented By: MIREYA Co-signed By: JOSIE Admin: 10/11/24 21:04 Dose: 4 units Documented By: CARSON Co-signed By: BESSIE Admin: 10/11/24 17:27 Dose: 26 units Documented By: MACHELLE Co-signed By: MARK Admin: 10/11/24 13:32 Dose: 3 units Documented By: MACHELLE Co-signed By: MIREYA Admin: 10/11/24 09:47 Dose: Not Given Documented By: Admin: 10/10/24 20:49 Dose: 5 units Documented By: STEPHEN Co-signed By: SACHI Insulin Glargine (Lantus Per Unit Charge) 30 units SC DAILY ISMAEL Stop: 10/13/24 09:01 Last Admin: 10/12/24 08:22 Dose: 30 units Documented By: MIREYA Co-signed By: JOSIE Admin: 10/11/24 09:56 Dose: Not Given Documented By: MACHELLE Levothyroxine Sodium (Levothyroxine Sodium 175 Mcg Tablet) 87.5 mcg PO SuSa@0630 [facility] Stop: 11/10/24 06:29 Last Admin: 10/12/24 05:54 Dose: 87.5 mcg Documented By: Admin: 10/11/24 07:46 Dose: 87.5 mcg Documented By: MACHELLE Lisinopril (Lisinopril 5 Mg Tab) 5 mg PO QAM [facility] Stop: 11/10/24 08:59 Last Admin: 10/12/24 08:20 Dose: 5 mg Documented By: Admin: 10/11/24 09:55 Dose: 5 mg Documented By: MACHELLE Pantoprazole Sodium (Pantoprazole 40 Mg Tab) 40 mg PO QAM ISMAEL Stop: 11/10/24 08:59 Last Admin: 10/12/24 08:19 Dose: 40 mg Documented By: Admin: 10/11/24 09:55 Dose: 40 mg Documented By: MACHELLE Senna/Docusate Sodium (Docusate Sodium/Senna 50/8.6mg Tab) 2 tab PO HS ISMAEL Stop: 11/09/24 20:59 Last Admin: 10/11/24 21:05 Dose: 2 tab Documented By: Admin: 10/10/24 20:26 Dose: 2 tab Documented By: STEPHEN Sertraline HCl (Sertraline Hcl 50 Mg Tablet) 25 mg PO QAM ISMAEL Stop: 11/10/24 08:59 Last Admin: 10/12/24 08:20 Dose: 25 mg Documented By: Admin: 10/11/24 09:54 Dose: 25 mg Documented By: MACHELLE Triamterene/Hydrochlorothiazide (Triamterene/Hctz 37.5/25mg Tab) 1 tab PO QAM ISMAEL Stop: 11/10/24 08:59 Last Admin: 10/12/24 08:19 Dose: 1 tab Documented By: Admin: 10/11/24 09:54 Dose: 1 tab Documented By: MACHELLE Vitamin D (Cholecalciferol 125 Mcg (5,000 Units) Tab) 125 mcg PO BID ISMAEL Stop: 11/09/24 20:59 Last Admin: 10/12/24 08:20 Dose: 125 mcg Documented By: Admin: 10/11/24 21:05 Dose: 125 mcg Documented By: Admin: 10/11/24 09:55 Dose: 125 mcg Documented By: Admin: 10/10/24 20:28 Dose: 125 mcg Documented By: STEPHEN
[2024-10-12] MEDS: METOCLOPRAMIDE HCL INJ 5 MG/ML 2 ML VIAL IV PRN (19:29)
[2024-10-12 19:59] VITALS: TEMP 97.9
[2024-10-12] MEDS: CALCIUM CARBONATE 500 MG CHEWABLE TAB PO PRN (21:58)
[2024-10-13] MEDS: LEVOTHYROXINE SODIUM 175 MCG TABLET PO SCH (05:38)
[2024-10-13 07:31] VITALS: BP 92/60; PULSE 66; O2SAT 94
[2024-10-13 07:34] LABS: Hematocrit (blood only) 32.9 % (37.0-47.0); Hemoglobin 10.9 g/dl (12.0-16.0); Mean Corpuscular Hemoglobin 27.7 pg (25.0-34.0); Mean Corpuscular Hgb Conc 33.1 g/dL (32.0-36.0); Mean Corpuscular Volume 83.7 fL (80.0-100.0); Mean Platelet Volume 10.7 fL (9.4-12.4); Platelet Count 230 K/uL (130-400); RDW Coefficient of Variation 14.2 % (11.5-14.5); Red Blood Count 3.93 M/uL (4.20-5.40); White Blood Count 9.57 K/ul (4.8-10.8)
[2024-10-13 07:51] LABS: BUN Creatinine Ratio 23.3 (10-20); Calcium 8.4 mg/dl (8.6-10.3); Creatinine Clr Calc Pharmacy 118.3 ml/min; Potassium 3.7 mmol/L (3.5-5.1)
--- NOTE | 2024-10-13 11:04 | Discharge Summary ---
Date of Service October 13, 2024 Admission HPI Per Admitting Provider This is a 59-year-old female who presents for chronic persistent back and leg pain after failing course of nonoperative care she is here for surgical invention. Principal Diagnosis Lumbar spondylosis with radiculopathy Discharge Data Allergies Allergy/AdvReac Type Severity Reaction Status Date / Time metformin AdvReac Severe severe Verified 10/10/24 10:35 abdominal pain, cramping, diarrhea tramadol AdvReac Mild Dizziness Verified 10/10/24 10:35 Consultations 10/10/24 16:41 Consult Hospitalist Routine Procedures Performed Operation Date: 10/10/24 12:05 Actual Procedures p L4-L5 Decompression and Fusion Spinal Cord Monitoring(Not Applicable) - German Jenkins DO Ordered Studies 10/10/24 [place] lumbar spine 2-3V Routine Hospital Course (1) Spondylolisthesis, lumbar region: Patient with lumbar decompression fusion tolerated this well was taken to orthopedic for postoperative. Postop she progressed appropriately. ISMA drain decreasing. Extra strength testing. Pain controlled. Subsidy discharged home. Discharge orders instructions from the chart or further review. Total Time Total Time Spent Total Time Spent (In Minutes): 20 minutes Discharge Plan Discharge Items Patient Disposition: Home - Self-Care Reason For Visit: Lumbar Radiculopathy, Spinal Stenosis of Lumbar Discharge Diagnosis: Lumbar spondylosis with radiculopathy Activity: As commented below Non-emergency contact: Primary Care Provider Call non-emergency contact if: you have any medication questions Follow-up/Referrals: Merrick Cardona MD [Primary Care Provider] - Diet: Regular Addtl Attending Provider Instructions: ACTIVITY RECOMMENDATIONS: SELF CARE INSTRUCTIONS AFTER THORACIC/LUMBAR FUSIONS 1. You may walk to your tolerance. It is good exercise for your legs and back. Expect some back and intermittent leg aches and pains. 2. You may perform "counter-top" level activities (make a sandwich, lindsay with a project, etc.). 3. No bending or lifting of more than 10 pounds or back twisting of any nature (roll like a log when turning in bed). 4. You may ride in a car for 20-30 minutes at a time. No driving until after your first visit with your doctor. 5. Frequent changes of position and restricting sitting to 30 minutes at a time will help limit the amount of back spasms and stiffness you may experience. 6. You may discontinue the use of ambulatory aids (cane, crutches, etc.) once your strength and confidence allow. 7. You may field service coordinator the shower and let water strike your incision when you arrive home at least once daily. Do not take a tub bath, sit in a hot tub or go into a swimming pool until after your first recheck in the office. 8. You may resume previous diet. SPECIAL CARE INSTRUCTIONS: VERY IMPORTANT TO READ AND REVIEW A. Your surgical incision has been closed with a cosmetic suture under the skin that will dissolve in about 6 weeks. In 14 days, you can use a pair of clean scissors and cut the suture that is left outside of the skin at the ends of your incision. 1. The small skin tapes can be removed 7 days after surgery if they have not fallen off by that point. 2. You may keep the wound open to air as much as possible to promote healing after post-op day number 5 unless told otherwise by your doctor. 3. If you think the wound looks like it is becoming infected (redness or worsening drainage) and/or you are experiencing fever, chill or worsening back pain and muscle spasms, contact the office so that we may evaluate you as soon as possible. B. Complications are uncommon, but please contact us if you have any signs or symptoms of: 1. wound infection (fever higher than 102.5 degrees F, redness, separation of wound, drainage, or increasing pain from the incision) 2. blood clots in legs (pain, swelling, redness and warmth in legs) 3. urinary tract infection (fever higher than 102.5 degrees F, burning upon urination or increased frequency of urination) 4. nerve problems (inability to walk on your toes or heels, numbness, loss of bowel or bladder control) 5. any other symptoms that concern you C. Please call the office at if you have any concerns or questions about your operation or recovery. D. No smoking! Smoking drastically decreases the chance of a solid fusion. E. Do not take any anti-inflammatory medications (Indocin, Advil, Motrin, Aspirin, Naprosyn, etc.) as these may inhibit the chance of a solid fusion. Tylenol is okay to take for pain. MANAGING PAIN AFTER SPINAL SURGERY 1. Narcotic medication is intended for short-term use and will be provided for surgical pain. Surgical pain usually lasts for a period of 4-6 weeks. Narcotic medication includes Percocet, Vicodin, Darvocet, Tylenol #3 or Lortab. 2. Longer-term pain is more appropriately treated with non-narcotic medication such as Tylenol ES. 3. Muscle spasm is not appropriately treated with narcotics. Muscle relaxers such as Soma, Flexeril or Skelaxin can be used along with Tylenol ES. 4. Remember that we all live with some "aches and pains". This is not unusual or uncommon after an injury or as we get older. a. Back pain is expected and may include muscle spasms for 4 to 6 weeks after surgery. The pain should gradually improve. If the pain worsens for no apparent reason, please contact the office. b. Intermittent leg pain may also be experienced and should not be concerned about unless it worsens for no apparent reason. If so, please contact the office. 5. We will provide appropriate medication within the normal guidelines of their prescribed use. We will also be very cautious and aware of potential abuse and extended duration of patients' medication needs. a. Pain medications are for your comfort and to assist with sleep and rest so that the tissue can heal. They are not provided in order to return to normal activity and should not be used through the day. To do so or worsening pain at night can result from ongoing tissue damage and development of tolerance to the prescribed medicine. 6. Please allow 2-3 days to process refills. Prescriptions will not be mailed but must be picked up at the office. FOLLOW UP VISIT: Keep your scheduled follow-up appointment. Any questions, please call the office at . Pending Studies at Discharge: No Stand-Alone Forms: My End[facility], Smoking Cessation Medications and DC Order Prescriptions: New tramadol 50 mg tablet 50 mg PO Q6H PRN (Reason: pain, moderate) Qty: 30 0RF oxycodone 5 mg tablet 5 mg PO Q6H PRN (Reason: pain) Qty: 20 0RF Continued levothyroxine 175 mcg Tablet 175 mcg PO 5XWK Rx Instructions: sunday through sunday levothyroxine 175 mcg Tablet 87.5 mcg PO 2XWK Rx Instructions: sunday and sunday atorvastatin 10 mg Tablet 10 mg PO QAM omeprazole 40 mg Capsule,Delayed Release(Dr/Ec) 40 mg PO QAM sertraline 25 mg Tablet 25 mg PO QAM triamterene-hydrochlorothiazid 37.5-25 mg Tablet 1 tab PO QAM lisinopril 5 mg Tablet 5 mg PO QAM Mounjaro 7.5 mg/0.5 mL Pen Injector 7.5 mg SUBCUT WK cholecalciferol (vitamin D3) [Vitamin D3] 125 mcg (5,000 unit) Tablet 125 mcg PO BID Jardiance 10 mg Tablet 10 mg PO DAILY Discharge Orders: Discharge Order (Routine); Ordered 10/13/24 Ordered By: German Jenkins Admission Data Admit Date/Time: 10/10/24 14:40 Attending Provider: German Jenkins Admit Provider: German Jenkins Primary Care Provider: Merrick Cardona Other Providers: Karissa Conde
--- NOTE | 2024-10-13 15:04 | Hospitalist Progress Note ---
Date of Service October 13, 2024 Assessment & Plan (1) Spondylolisthesis, lumbar region: Plan: Status post L4-L5 decompression and fusion (2) Spinal stenosis: (3) Chronic back pain: (4) Anxiety: (5) GERD (gastroesophageal reflux disease): (6) Hypothyroidism: (7) Hypertension: (8) Hyperlipidemia: (9) Sleep apnea: Plan -L4-L5 decompression and fusion on 10/10/2024 -Management will be as per spine surgery -Minimal pain following surgery without any radiation and her numbness has been improving -DVT prophylaxis as per surgeon -medically stable for discharge when ready per ortho -Her other significant medical conditions as mentioned above remained stable -Her chronic medications will be continued and -She will have BiPAP for sleep apnea as usual I spent a total of 35 minutes in direct patient care, including [id number] time with the patient and/or family, reviewing medical records, ordering and reviewing diagnostic tests, and coordinating care with other healthcare providers. This time includes: history taking, physical examination, medical decision making, counseling, ECG interpretation, imaging interpretation, lab interpretation, orders, and education, excluding time spent in the performance of separately billed services. Admission and Anticipated Discharge Date Admission Date: October 10, 2024 Subjective Patient seen and examined at bedside. Patient doing well today, looking forward to going home today, per ortho. Review of Systems Review of Systems: CONSTITUTIONAL: Patient denies fevers, chills, sweats and weight changes. EYES: Patient denies any visual symptoms. EARS, NOSE, AND THROAT: No difficulties with hearing. No symptoms of rhinitis or sore throat. CARDIOVASCULAR: Patient denies chest pains, palpitations, orthopnea and paroxysmal nocturnal dyspnea. RESPIRATORY: No dyspnea on exertion, no wheezing or cough. GI: No nausea, vomiting, diarrhea, constipation, abdominal pain, hematochezia or melena. : No urinary hesitancy or dribbling. No nocturia or urinary frequency. No abnormal urethral discharge. MUSCULOSKELETAL: No myalgias or arthralgias. NEUROLOGIC: No chronic headaches, no seizures. Patient denies numbness, tingling or weakness. PSYCHIATRIC: Patient denies problems with mood disturbance. No problems with anxiety. ENDOCRINE: No excessive urination or excessive thirst. DERMATOLOGIC: Patient denies any rashes or skin changes. Physical Exam Physical Exam: Gen: A&O 3 NAD HEENT: NCAT, EOMI, not icteric. External ears normal. No rhinorrhea. Moist mucous membranes. Neck: Supple, full range of motion, no observable masses, No meningeal sign. Lungs: No Respiratory distress. CV: RRR, no edema. Abdomen: Soft, nondistended, No rebound tenderness. MSK: No joint swelling, no redness. Noted wound site and ISMA drain Skin: No rashes, petechiae, lesions. Normal color per patient. Neuro: Normal Gait, Grossly intact. Psych: Appropriate for situation. Results & Data Results & Data Vital Signs (Past 12 Hours) Vital Signs Temp Pulse Resp BP Pulse Ox O2 Del Method 10/13/24 07:08 36.6 C 66 16 92/60 L 94 Room Air
== END 2024-10-13 12:42 | disposition home or self-care (01) | DRG 402 ==
LOC: ASU 10:43 → 3W 14:40